=== PATIENT | male | born 1935 | race African-American/Black ===

== ENCOUNTER 2017-05-16 22:12 | Emergency (ER) | payer MEDICARE, MEDICAID ==
[~2017-05-16] VITALS: Ht 167.6 cm; Wt 59.0 kg
[~2017-05-16 22:12] MED LIST: ASPI-1158 PO; ATEN-42 PO; FINA5TAB11 PO; NITR0.4T49 SL; OMEP20CA10 PO; PANT40TA4 PO; TAMS-11 PO
[2017-05-16] MEDS ORDERED: SODIUM CHLORIDE 0.9% 1,000 ML IV ONE (22:59)
[2017-05-16 23:35] LABS: BASOPHILS % 0.9 % (0.0-2.0); EOSINOPHILS % 0.5 % (0.0-5.0); HEMATOCRIT. 37.5 % (42.0-52.0); HEMOGLOBIN. 12.2 g/dL (14.0-18.0); LYMPHOCYTES % 14.6 % (20.0-50.0); MEAN CORPUSCULAR HEMOGLOBIN 25.8 pg (28.0-32.0); MEAN CORPUSCULAR VOLUME 79.6 fL (80.0-94.0); MEAN PLATELET VOLUME 8.5 fl (7.4-10.4); PLATELET 223 x1000/uL (130-400); RED BLOOD CELL COUNT 4.72 mill/uL (4.7-6.1); RED CELL DISTRIBUTION WIDTH 14.7 % (11.6-14.6)
[2017-05-16 23:42] LABS: INR 1.3; PROTHROMBIN TIME 13.4 sec (9.4-11.6)
[2017-05-16 23:50] LABS: CARBON DIOXIDE 34 mEq/L (21-32); CHLORIDE 100 mEq/L (98-107); ETHANOL BLOOD < 10 mg/dL; TROPONIN I < 0.02 ng/mL (0.00-0.04)
[2017-05-17 01:47] VITALS: BP 109/53
== END 2017-05-17 01:59 | disposition home or self-care (01) ==
LOC: ER 22:22 → CANBEDREQ 05-17 02:04
DX: R40.4 Transient alteration of awareness (principal); E78.00 Pure hypercholesterolemia, unspecified; R79.1 Abnormal coagulation profile; Z95.1 Presence of aortocoronary bypass graft; Z79.82 Long term (current) use of aspirin
CPT/HCPCS: 36415; 70450; 71010; 80053; 83880; 84484; 85025; 85610; 96360; 96361; 99285; G0482; J7030

== ENCOUNTER 2019-12-09 16:16 | Inpatient (IN) | payer MEDICARE, MEDICAID ==
[~2019-12-09] VITALS: Ht 177.8 cm; Wt 42.6 kg
[~2019-12-09 16:16] MED LIST changes: -OMEP20CA10 PO; +OMEP20CA14 PO
[2019-12-09] MEDS ORDERED: SODIUM CHLORIDE 0.9% 1,000 ML IV ONE (17:01)
[2019-12-09 17:53] LABS: HEMATOCRIT. 48.6 % (42.0-52.0); HEMOGLOBIN. 15.4 g/dL (14.0-18.0); MEAN CORPUSCULAR HEMOGLOBIN 26.1 pg (28.0-32.0); MEAN CORPUSCULAR VOLUME 82.2 fL (80.0-94.0); MEAN PLATELET VOLUME 11.3 fl (7.4-10.4); PLATELET 110 x1000/uL (130-400); RED BLOOD CELL COUNT 5.92 mill/uL (4.7-6.1)
[2019-12-09 17:54] LABS: CHLORIDE 124 mEq/L (98-107)
[2019-12-09 17:56] LABS: INR 2.7
[2019-12-09 18:00] LABS: ETHANOL BLOOD < 10 mg/dL
[2019-12-09] MEDS ORDERED: SODIUM CHLORIDE 0.45% 1,000 ML IV SCH (18:45)
[2019-12-09] MEDS ORDERED: CEFTRIAXONE 1 G PREMIX 50 ML IV SCH (18:45)
[2019-12-09] MEDS ORDERED: AZITHROMYCIN 500 MG in DEXT 5% WATER 250 ML IV SCH (18:45)
[2019-12-09] MEDS ORDERED: ENOXAPARIN 40MG/0.4ML SYR SUBCUT SCH (18:45)
[2019-12-09] MEDS ORDERED: ACETAMINOPHEN 325MG TABLET PO PRN (19:30)
[2019-12-09] MEDS ORDERED: NITROGLYCERIN 0.4MG TABLET SL SL PRN (19:30)
[2019-12-09] MEDS ORDERED: DOCUSATE SODIUM 100MG CAPSULE PO PRN (19:30)
[2019-12-09] MEDS ORDERED: CLONIDINE 0.1MG TABLET PO PRN (19:30)
[2019-12-09] MEDS ORDERED: IPRATROPIUM/ALBUTEROL 0.5-3(2.5)MG/3ML NEB ORI PRN (19:30)
[2019-12-09] MEDS ORDERED: ZOLPIDEM TARTRATE 5MG TABLET PO PRN (19:30)
[2019-12-09] MEDS ORDERED: MAGNESIUM/ALUMINUM HYDROXIDE/SIMETHICONE 30ML UDC PO PRN (19:30)
[2019-12-09] MEDS ORDERED: ONDANSETRON HCL 4MG/2ML INJ IV PRN (19:30)
[2019-12-09] MEDS ORDERED: PIPERACILLIN/TAZ 3.375G PREMIX 50 ML IV SCH (19:30)
[2019-12-09 19:41] LABS: NUCLEATED RED BLOOD CELLS 1 /100 WBC; PLATELET ESTIMATE DECREASED
[2019-12-09] MEDS ORDERED: VANCOMYCIN 1 G PREMIX 200 ML IV SCH (20:00)
[2019-12-09] MEDS: ASCORBIC ACID 500 MG TABLET PO SCH (21:00)
[2019-12-09] MEDS: METOPROLOL TARTRATE 25MG TABLET PO SCH (21:00)
[2019-12-09] MEDS ORDERED: FAMOTIDINE 20MG TABLET PO SCH (21:00)
[2019-12-09 21:03] LABS: VITAMIN B12 SERUM > 2000.0 pg/mL (211-911)
[2019-12-10] VITALS (29 sets, daily range): BP systolic 70–177; BP diastolic 48–101
[2019-12-10] MEDS: PIPERACILLIN/TAZOBACTAM 2.25 G in DEXTROSE 5% WATER 50 ML IV SCH ×4 (00:03→17:05)
[2019-12-10] MEDS ORDERED: ASPIRIN 325MG EC TABLET PO SCH (09:00)
[2019-12-10] MEDS: ZINC SULFATE 220 MG ( 50 ) CAPSULE PO SCH (09:28)
[2019-12-10] MEDS: METOPROLOL TARTRATE 25MG TABLET PO SCH ×2 (09:28→21:00)
[2019-12-10] MEDS: FAMOTIDINE 20MG TABLET PO SCH (09:28)
[2019-12-10] MEDS: ASCORBIC ACID 500 MG TABLET PO SCH ×2 (09:28→21:44)
[2019-12-10] MEDS: DEXTROSE 5% WATER 1,000 ML IV SCH ×2 (09:33→21:44)
[2019-12-10 10:47] LABS: T4 FREE 1.59 ng/dL (0.76-1.46)
[2019-12-10 11:48] LABS: HEPATITIS B SURFACE ANTIGEN NEGATIVE
[2019-12-10] MEDS ORDERED: VANCOMYCIN 750 MG PREMIX 150 ML IV SCH (12:00)
[2019-12-10 12:16] LABS: HEPATITIS A AB IGM NEGATIVE (NEGATIVE)
[2019-12-10] MEDS: VANCOMYCIN 500 MG PREMIX 100 ML IV SCH (14:20)
[2019-12-10] MEDS: TRAMADOL 50MG TABLET PO PRN (15:49)
[2019-12-10 23:30] LABS: CREATINE KINASE MB FRACTION 14.2 ng/mL (0.5-3.6)
[2019-12-11] VITALS: BP 153/67
[2019-12-11] MEDS: PIPERACILLIN/TAZOBACTAM 2.25 G in DEXTROSE 5% WATER 50 ML IV SCH ×4 (00:14→17:50)
[2019-12-11 04:00] VITALS: BP 131/84
[2019-12-11] MEDS: ASPIRIN 81MG TABLET PO SCH (09:32)
[2019-12-11] MEDS: ZINC SULFATE 220 MG ( 50 ) CAPSULE PO SCH (09:32)
[2019-12-11] MEDS: METOPROLOL TARTRATE 25MG TABLET PO SCH ×2 (09:32→22:12)
[2019-12-11] MEDS: ASCORBIC ACID 500 MG TABLET PO SCH ×2 (09:32→22:12)
[2019-12-11] MEDS: FAMOTIDINE 20MG TABLET PO SCH (09:33)
[2019-12-11 11:23] LABS: HEMATOCRIT. 45.8 % (42.0-52.0); HEMOGLOBIN. 14.5 g/dL (14.0-18.0); MEAN CORPUSCULAR HEMOGLOBIN 26.2 pg (28.0-32.0); MEAN CORPUSCULAR VOLUME 82.4 fL (80.0-94.0); MEAN PLATELET VOLUME 11.8 fl (7.4-10.4); PLATELET 76 x1000/uL (130-400); RED BLOOD CELL COUNT 5.55 mill/uL (4.7-6.1); RED CELL DISTRIBUTION WIDTH 15.3 % (11.6-14.6)
[2019-12-11 11:30] LABS: CHLORIDE 117 mEq/L (98-107)
[2019-12-11 12:02] LABS: CREATINE KINASE 4542 IU/L (39-308)
[2019-12-11 12:23] VITALS: BP 101/50
[2019-12-11 12:49] LABS: PLATELET ESTIMATE DECREASED
[2019-12-11] MEDS: DEXTROSE 5% WATER 1,000 ML IV SCH (13:10)
[2019-12-11] MEDS: VANCOMYCIN 500 MG PREMIX 100 ML IV SCH (15:27)
[2019-12-11 16:15] VITALS: BP 124/79
[2019-12-11 20:00] VITALS: BP 111/65
[2019-12-12] VITALS: BP 110/67
[2019-12-12] MEDS: DEXTROSE 5% WATER 1,000 ML IV SCH ×2 (00:11→11:59)
[2019-12-12] MEDS: PIPERACILLIN/TAZOBACTAM 2.25 G in DEXTROSE 5% WATER 50 ML IV SCH ×4 (00:19→17:00)
[2019-12-12 04:00] VITALS: BP 108/68
[2019-12-12] MEDS: VANCOMYCIN 500 MG PREMIX 100 ML IV SCH ×2 (04:28→21:32)
[2019-12-12 08:00] VITALS: BP 121/58
[2019-12-12] MEDS: ASPIRIN 81MG TABLET PO SCH (09:31)
[2019-12-12] MEDS: ASCORBIC ACID 500 MG TABLET PO SCH ×2 (09:31→21:33)
[2019-12-12] MEDS: METOPROLOL TARTRATE 25MG TABLET PO SCH ×2 (09:31→21:00)
[2019-12-12] MEDS: ZINC SULFATE 220 MG ( 50 ) CAPSULE PO SCH (09:31)
[2019-12-12] MEDS: FAMOTIDINE 20MG/2ML VIAL IV SCH (11:22)
[2019-12-12 12:00] VITALS: BP 123/104
[2019-12-12] MEDS: TRAMADOL 50MG TABLET PO PRN (13:14)
[2019-12-12 16:00] VITALS: BP 122/70
[2019-12-12] MEDS: PHYTONADIONE 10MG/ML AMP SUBCUT SCH (16:59)
[2019-12-12 19:35] LABS: TOTAL IRON BINDING CAPACITY 285 ug/dL (250-450)
[2019-12-12 20:00] VITALS: BP 101/50
[2019-12-12 21:29] LABS: CARCINO EMBRYONIC ANTIGEN 2.2 ng/ml
[2019-12-13] VITALS: BP 118/45
[2019-12-13] MEDS: PIPERACILLIN/TAZOBACTAM 2.25 G in DEXTROSE 5% WATER 50 ML IV SCH ×5 (00:46→23:52)
[2019-12-13] MEDS: DEXTROSE 5% WATER 1,000 ML IV SCH ×2 (03:43→16:57)
[2019-12-13 04:00] VITALS: BP 116/50
[2019-12-13 08:00] VITALS: BP 116/57
[2019-12-13] MEDS: ZINC SULFATE 220 MG ( 50 ) CAPSULE PO SCH (10:57)
[2019-12-13] MEDS: ASCORBIC ACID 500 MG TABLET PO SCH ×2 (10:57→20:56)
[2019-12-13] MEDS: METOPROLOL TARTRATE 25MG TABLET PO SCH ×2 (10:57→20:57)
[2019-12-13] MEDS: FAMOTIDINE 20MG/2ML VIAL IV SCH (10:58)
[2019-12-13] MEDS: ASPIRIN 81MG TABLET PO SCH (10:58)
[2019-12-13] MEDS: PHYTONADIONE 10MG/ML AMP SUBCUT SCH (11:05)
[2019-12-13 12:00] VITALS: BP 134/109
[2019-12-13 15:44] LABS: CHLORIDE 109 mEq/L (98-107)
[2019-12-13 16:00] VITALS: BP 136/60
[2019-12-13] MEDS: VANCOMYCIN 500 MG PREMIX 100 ML IV SCH (16:52)
[2019-12-13] MEDS ORDERED: POTASSIUM CHLORIDE 20MEQ TABLET SR PO NR (17:45)
[2019-12-13 20:00] VITALS: BP 144/68
[2019-12-13] MEDS: ATORVASTATIN CALCIUM 40MG TABLET PO SCH (20:56)
[2019-12-14] VITALS (7 sets, daily range): BP systolic 89–128; BP diastolic 44–78
[2019-12-14] MEDS: TRAMADOL 50MG TABLET PO PRN ×2 (02:12→10:33)
[2019-12-14] MEDS: PIPERACILLIN/TAZOBACTAM 2.25 G in DEXTROSE 5% WATER 50 ML IV SCH ×3 (05:38→18:23)
[2019-12-14] MEDS: DEXTROSE 5% WATER 1,000 ML IV SCH ×2 (05:51→21:41)
[2019-12-14 07:52] LABS: INR 1.7; PROTHROMBIN TIME 17.5 sec (9.6-11.0)
[2019-12-14 08:03] LABS: CHLORIDE 106 mEq/L (98-107)
[2019-12-14] MEDS: ASPIRIN 81MG TABLET PO SCH (08:58)
[2019-12-14] MEDS: METOPROLOL TARTRATE 25MG TABLET PO SCH ×2 (08:58→21:00)
[2019-12-14] MEDS: ZINC SULFATE 220 MG ( 50 ) CAPSULE PO SCH (08:58)
[2019-12-14] MEDS: FAMOTIDINE 20MG/2ML VIAL IV SCH (08:58)
[2019-12-14] MEDS: ASCORBIC ACID 500 MG TABLET PO SCH ×2 (08:58→21:35)
[2019-12-14] MEDS: VANCOMYCIN 500 MG PREMIX 100 ML IV SCH (09:00)
[2019-12-14] MEDS: PHYTONADIONE 10MG/ML AMP SUBCUT SCH (12:25)
[2019-12-14 15:15] LABS: HEMATOCRIT. 41.6 % (42.0-52.0); HEMOGLOBIN. 13.5 g/dL (14.0-18.0); MEAN CORPUSCULAR HEMOGLOBIN 25.9 pg (28.0-32.0); MEAN CORPUSCULAR VOLUME 80.1 fL (80.0-94.0); PLATELET 67 x1000/uL (130-400); RED CELL DISTRIBUTION WIDTH 14.9 % (11.6-14.6)
[2019-12-14 16:22] LABS: NUCLEATED RED BLOOD CELLS 4 /100 WBC; PLATELET ESTIMATE MARKEDLY DECREASED
[2019-12-14] MEDS: ATORVASTATIN CALCIUM 40MG TABLET PO SCH (21:35)
[2019-12-14] MEDS: ACETAMINOPHEN 325MG TABLET PO PRN (21:35)
[2019-12-15] VITALS: BP 124/63
[2019-12-15 04:00] VITALS: BP 118/52
[2019-12-15 08:00] VITALS: BP 140/52
[2019-12-15] MEDS: DEXTROSE 5% WATER 1,000 ML IV SCH ×2 (08:24→22:20)
[2019-12-15] MEDS: ZINC SULFATE 220 MG ( 50 ) CAPSULE PO SCH (08:24)
[2019-12-15] MEDS: FAMOTIDINE 20MG/2ML VIAL IV SCH (08:24)
[2019-12-15] MEDS: ASPIRIN 81MG TABLET PO SCH (08:24)
[2019-12-15] MEDS: ASCORBIC ACID 500 MG TABLET PO SCH ×2 (08:24→20:31)
[2019-12-15] MEDS: METOPROLOL TARTRATE 25MG TABLET PO SCH ×2 (08:24→20:39)
[2019-12-15 12:00] VITALS: BP 142/73
[2019-12-15] MEDS: ACETAMINOPHEN 325MG TABLET PO PRN (12:15)
[2019-12-15] MEDS: LOSARTAN POTASSIUM 25 MG TABLET PO SCH (13:04)
[2019-12-15 16:00] VITALS: BP_SYST 132; BP_SYST 133; BP_DIAS 72
[2019-12-15 20:00] VITALS: BP 142/79
[2019-12-15] MEDS: ATORVASTATIN CALCIUM 40MG TABLET PO SCH (20:31)
[2019-12-16] VITALS: BP 125/53
[2019-12-16 04:00] VITALS: BP 126/71
[2019-12-16 08:00] VITALS: BP 133/57
[2019-12-16] MEDS: METOPROLOL TARTRATE 25MG TABLET PO SCH ×2 (09:00→21:40)
[2019-12-16] MEDS: LOSARTAN POTASSIUM 25 MG TABLET PO SCH (09:30)
[2019-12-16] MEDS: ASCORBIC ACID 500 MG TABLET PO SCH ×2 (09:30→21:40)
[2019-12-16] MEDS: FAMOTIDINE 20MG/2ML VIAL IV SCH (09:31)
[2019-12-16] MEDS: ZINC SULFATE 220 MG ( 50 ) CAPSULE PO SCH (09:32)
[2019-12-16] MEDS: ASPIRIN 81MG TABLET PO SCH (09:32)
[2019-12-16] MEDS: DEXTROSE 5% WATER 1,000 ML IV SCH (11:40)
[2019-12-16 12:00] VITALS: BP 110/48
[2019-12-16 16:00] VITALS: BP 130/62
[2019-12-16 20:00] VITALS: BP 134/72
[2019-12-16] MEDS: ATORVASTATIN CALCIUM 40MG TABLET PO SCH (21:40)
[2019-12-17] VITALS: BP 143/68
[2019-12-17] MEDS: DEXTROSE 5% WATER 1,000 ML IV SCH (01:34)
[2019-12-17 04:00] VITALS: BP 146/59
[2019-12-17 06:17] LABS: INR 1.1; PROTHROMBIN TIME 12.3 sec (9.6-11.0)
[2019-12-17 06:19] LABS: CHLORIDE 104 mEq/L (98-107)
[2019-12-17 06:32] LABS: HEMATOCRIT. 42.2 % (42.0-52.0); HEMOGLOBIN. 14.3 g/dL (14.0-18.0); MEAN CORPUSCULAR HEMOGLOBIN 26.5 pg (28.0-32.0); MEAN CORPUSCULAR VOLUME 78.2 fL (80.0-94.0); MEAN PLATELET VOLUME 11.8 fl (7.4-10.4); PLATELET 103 x1000/uL (130-400); RED CELL DISTRIBUTION WIDTH 14.7 % (11.6-14.6)
[2019-12-17 08:00] VITALS: BP 142/70
[2019-12-17] MEDS: FAMOTIDINE 20MG/2ML VIAL IV SCH (09:11)
[2019-12-17] MEDS: LOSARTAN POTASSIUM 25 MG TABLET PO SCH (09:11)
[2019-12-17] MEDS: ZINC SULFATE 220 MG ( 50 ) CAPSULE PO SCH (09:12)
[2019-12-17] MEDS: ASCORBIC ACID 500 MG TABLET PO SCH (09:12)
[2019-12-17] MEDS: METOPROLOL TARTRATE 25MG TABLET PO SCH (09:12)
[2019-12-17] MEDS: ASPIRIN 81MG TABLET PO SCH (09:12)
[2019-12-17 11:55] LABS: NUCLEATED RED BLOOD CELLS 2 /100 WBC; PLATELET ESTIMATE DECREASED
== END 2019-12-17 15:00 | disposition expired | DRG 871 ==
LOC: ER 16:16 → EDBEDREQ 18:36 → EDBEDREQTM 18:36 → EDBEDREQSVC 18:36 → EDBEDREQTM 19:14 → EDBEDREQ 19:14 → MICUSO 19:50 → EDBEDREQSVC 19:58 → EDBEDREQTM 19:58 → EDBEDREQ 19:58 → MICUSO 12-10 03:49 → 7WST 12-10 19:45 → 5WST 12-11 11:49
PROVIDERS: ADMIT Internal Medicine; ATTEND Internal Medicine
PROC: 5A12012 Performance of Cardiac Output, Single, Manual (ICD-10-PCS; principal; 2019-12-17)
PROC: 0BH17EZ Insertion of Endotracheal Airway into Trachea, Via Natural or Artificial Opening (ICD-10-PCS; 2019-12-17)
PROC: 5A1935Z Respiratory Ventilation, Less than 24 Consecutive Hours (ICD-10-PCS; 2019-12-17)
DX: A41.9 Sepsis, unspecified organism (principal); I21.4 Non-ST elevation (NSTEMI) myocardial infarction; G92 Toxic encephalopathy; J69.0 Pneumonitis due to inhalation of food and vomit; E43 Unspecified severe protein-calorie malnutrition; I50.23 Acute on chronic systolic (congestive) heart failure; E87.0 Hyperosmolality and hypernatremia; N17.9 Acute kidney failure, unspecified; D68.9 Coagulation defect, unspecified; I42.9 Cardiomyopathy, unspecified; M62.82 Rhabdomyolysis; Z68.1 Body mass index [BMI] 19.9 or less, adult; I13.0 Hypertensive heart and chronic kidney disease with heart failure and stage 1 through stage 4 chronic kidney disease, or unspecified chronic kidney disease; I47.2 Ventricular tachycardia; D72.810 Lymphocytopenia; F03.90 Unspecified dementia, unspecified severity, without behavioral disturbance, psychotic disturbance, mood disturbance, and anxiety; I46.9 Cardiac arrest, cause unspecified; I08.3 Combined rheumatic disorders of mitral, aortic and tricuspid valves; K76.0 Fatty (change of) liver, not elsewhere classified; K80.20 Calculus of gallbladder without cholecystitis without obstruction; N18.9 Chronic kidney disease, unspecified; R13.12 Dysphagia, oropharyngeal phase; R47.02 Dysphasia; E83.51 Hypocalcemia; I25.10 Atherosclerotic heart disease of native coronary artery without angina pectoris; J44.9 Chronic obstructive pulmonary disease, unspecified; N40.0 Benign prostatic hyperplasia without lower urinary tract symptoms; Z95.1 Presence of aortocoronary bypass graft; Z78.1 Physical restraint status; Z88.1 Allergy status to other antibiotic agents; Z79.899 Other long term (current) drug therapy; Z03.818 Encounter for observation for suspected exposure to other biological agents ruled out
CPT/HCPCS: 36415; 71045; 71250; 74181; 76700; 78580; 80048; 80053; 80061; 80076; 80202; 80320; 82105; 82140; 82378; 82550; 82553; 82607; 82728; 82746; 82962; 83036; 83540; 83550; 83605; 83735; 83880; 84132; 84439; 84443; 84450; 84460; 84484; 85025; 85379; 86301; 86705; 86709; 86803; 87340; 92610; 93005; 93306; 93970; 99291; J0456; J0696; J1650; J2543; J3370; J3430; J3490; J7030; J7060; J7070; G0480; U0003-CS